=== PATIENT | female | born 1980 | race Caucasian/White ===

== ENCOUNTER 2023-11-09 10:08 | Outpatient (CLI) | payer MEDICAID ==
[~2023-11-09 10:08] MED LIST: ALBU8HFA INH; NAPR-1154 PO
== END 2023-11-09 23:59 | disposition home or self-care (01) ==
LOC: MRI 10:08
PROVIDERS: ATTEND Podiatrist Foot & Ankle Surgery
DX: S93.432A Sprain of tibiofibular ligament of left ankle, initial encounter (principal); M79.672 Pain in left foot; M19.072 Primary osteoarthritis, left ankle and foot; M72.2 Plantar fascial fibromatosis; M25.775 Osteophyte, left foot; M25.475 Effusion, left foot; M77.8 Other enthesopathies, not elsewhere classified; X58.XXXA Exposure to other specified factors, initial encounter; Y93.89 Activity, other specified; Y92.89 Other specified places as the place of occurrence of the external cause; Y99.8 Other external cause status
CPT/HCPCS: 73721

== ENCOUNTER 2024-03-12 09:06 | Day surgery (SDC) | payer MEDICAID ==
[2024-03-06 12:25] LABS: BASOPHILS # (AUTO) 0.1 X10'3 (0-0.2); BASOPHILS % (AUTO) 0.6 % (0-1); EOSINOPHILS # (AUTO) 0.1 X10'3 (0-0.9); LYMPHOCYTES # (AUTO) 2.3 X10'3 (1.1-4.8); LYMPHOCYTES % (AUTO) 24.5 % (21-51); MEAN CORPUSCULAR HEMOGLOBIN 31.4 PG (27.0-31.0); MEAN CORPUSCULAR HGB CONC 33.9 g/dL (33.0-36.5); MEAN CORPUSCULAR VOLUME 92.4 FL (78-98); MEAN PLATELET VOLUME 9.6 FL (7.4-10.4); MONOCYTES # (AUTO) 0.4 X10'3 (0-0.9); MONOCYTES % (AUTO) 4.4 % (2-12); NEUTROPHILS # (AUTO) 6.4 X10'3 (1.8-7.7); NEUTROPHILS % (AUTO) 69.5 % (42-75); PRE OP HEMATOCRIT 40.2 % (35.0-45.0); PRE OP HEMOGLOBIN 13.6 g/dL (12.0-16.0); PRE OP PLATELET COUNT 218 X10'3 (140-440); PRE OP WHITE BLOOD COUNT 9.3 10'3 (4.8-10.8); RED BLOOD COUNT 4.35 X10'6 (4.20-5.60)
[2024-03-06 12:34] LABS: ALBUMIN 3.6 G/DL (3.4-5.0); ALKALINE PHOSPHATASE 76 IU/L (46-116); BLOOD UREA NITROGEN 11 MG/DL (7-18); BUN/CREATININE RATIO 12.4 (10.0-20.0); CALCIUM 8.7 MG/DL (8.5-10.1); CHLORIDE 106 MMOL/L (99-107); CREATININE 0.89 MG/DL (0.40-0.90); PRE OP ALT 40 U/L (30-65); PRE OP ANION GAP 7 (8-16); PRE OP AST 22 U/L (10-37); PRE OP BILIRUB, TOTAL 0.4 MG/DL (0.0-1.0); PRE OP GLUCOSE 91 MG/DL (70-104); PRE OP POTASSIUM 3.4 MMOL/L (3.4-5.1); PRE OP SODIUM 140 MMOL/L (135-145); TOTAL PROTEIN 7.2 G/DL (6.4-8.2); eGFR 69 ML/MIN
[2024-03-12] VITALS (18 sets, daily range): BP systolic 101–126; BP diastolic 60–71; PULSE 66–84; RESP 13–23; TEMP 97.4; O2SAT 92–99
[~2024-03-12] VITALS: Ht 149.9 cm; Wt 108.9 kg
[2024-03-12] MEDS: cefazolin 2gm/D5W 100mL 100 ML IV ONE (05:30)
[~2024-03-12 09:06] MED LIST changes: -ALBU8HFA INH; +CHOL200012 PO; -NAPR-1154 PO; +SEMA1PEN5 SUBCUT
[2024-03-12] MEDS: famotidine 20mg tablet PO ONE (09:58)
[2024-03-12] MEDS: ringers solution, lacted 1,000 ML IV SCH (09:58)
[2024-03-12] MEDS ORDERED: bacitracin 15gm ointment TP ONE (10:05)
[2024-03-12] MEDS ORDERED: BUPIVAcaine 2.5mg/ml inj 50ml vial (contains preservative) ONE (10:05)
[2024-03-12] MEDS ORDERED: sevoflurane 250ml liquid IH ONE (10:36)
[2024-03-12] MEDS ORDERED: propofol inj 20 ML IV ONE (10:37)
[2024-03-12] MEDS ORDERED: midazolam 1 mg/ML 2ml injection ONE (10:37)
[2024-03-12] MEDS ORDERED: fentaNYL/PF 50MCG/1 ML 2ML syringe ONE (10:37)
[2024-03-12] MEDS ORDERED: morphine 2 MG/ML inj. syringe IV PRN (11:45)
[2024-03-12] MEDS ORDERED: meperidine/PF 25mg/ml syringe IV PRN ×3 (11:45)
[2024-03-12] MEDS ORDERED: morphine 4 MG/ML inj SYRINge IV PRN (11:45)
[2024-03-12] MEDS ORDERED: ringers solution, lacted 1,000 ML IV SCH (11:45)
[2024-03-12] MEDS ORDERED: ondansetron/PF 4mg/2ml inj IV PRN (11:45)
[2024-03-12] MEDS ORDERED: proCHLORperazine 10 MG/2 ml inj IV PRN (11:45)
[2024-03-12] MEDS ORDERED: ondansetron/PF 4mg/2ml inj ONE (12:54)
[2024-03-12] MEDS ORDERED: dexamethasone sod phosphate 4mg/ml inj. ONE (12:54)
== END 2024-03-12 16:14 | disposition home or self-care (01) ==
LOC: UNDOADMIN 09:06 → PAS IN 09:06 → PAS 09:06 → EDSTATUS 09:45 → PAS 16:14
PROVIDERS: ATTEND Podiatrist Foot & Ankle Surgery
DX: M19.072 Primary osteoarthritis, left ankle and foot (principal); M72.2 Plantar fascial fibromatosis; M20.12 Hallux valgus (acquired), left foot; M77.32 Calcaneal spur, left foot; M65.872 Other synovitis and tenosynovitis, left ankle and foot; E66.01 Morbid (severe) obesity due to excess calories; G47.33 Obstructive sleep apnea (adult) (pediatric); I25.2 Old myocardial infarction; F17.200 Nicotine dependence, unspecified, uncomplicated; Z79.899 Other long term (current) drug therapy; Z90.49 Acquired absence of other specified parts of digestive tract; Z68.42 Body mass index [BMI] 45.0-49.9, adult
CPT/HCPCS: 27626; 27687; 28062; 28119; 28730; 36415; 64447; 64450; 76942; 80053; 82948; 85025; 93005; A6223; C1713; J0690; J0735; J1100; J2250; J2405; J2704; J2795; J3010; J3490; J7030; J7120; Z7506; Z7508; Z7512; A4215; A4618; A6449; A7000

== ENCOUNTER 2024-03-12 20:08 | Emergency (ER) | payer MEDICAID ==
[~2024-03-12] VITALS: Ht 152.4 cm; Wt 104.5 kg
[2024-03-12 22:21] VITALS: BP 103/59; PULSE 85; RESP 14; TEMP 98.2; O2SAT 95
== END 2024-03-12 22:24 | disposition home or self-care (01) ==
LOC: ER 20:09
DX: T81.89XA Other complications of procedures, not elsewhere classified, initial encounter (principal); W20.8XXA Other cause of strike by thrown, projected or falling object, initial encounter; Y93.89 Activity, other specified; Y92.89 Other specified places as the place of occurrence of the external cause; Y99.8 Other external cause status
CPT/HCPCS: 73630; 99284; A6446; A6449